=== PATIENT | female | born 1960 | race Caucasian/White ===

== ENCOUNTER → 2024-11-28 10:52 | Outpatient (BNVA) | payer OTHER, SELFPAY | PROVIDERS: Visit Provider Specialist | DX: G31.84 Mild cognitive impairment of uncertain or unknown etiology (principal); G25.71 Drug induced akathisia | CPT/HCPCS: 82542; 83520 ==

== ENCOUNTER 2024-12-13 12:41 | Outpatient (CLI) | payer OTHER, SELFPAY ==
--- NOTE | 2024-12-13 12:30 | MR_ITS ---
WS: [id number] MRI BRAIN WITHOUT CONTRAST HISTORY: G31.84 - Mild cognitive impairment of uncertain or unknow... COMPARISON: None available. TECHNIQUE: Diffusion imaging, multiplanar T1, T2 and FLAIR imaging obtained. No evidence for acute infarct or hemorrhage. Martin-white matter differentiation is normal. Mild RIGHT hippocampal atrophy. Mild cerebral and cerebellar atrophy. No prior infarct. No significant small vessel disease. Ventricles and extra-axial spaces are normal. Increased CSF at the RIGHT cerebellopontine angle and extending towards the internal auditory canal. Signal changes on all sequences appear to be related to CSF. This is asymmetric to the LEFT CP angle. Dural venous sinuses and lytton of Lozano demonstrate no abnormality on this unenhanced studies. Paranasal sinuses: Clear. Mastoid air cells: Normal. Calvarium and scalp: Intact. MR/MR head wo con* [id number] IMPRESSION: 1. No acute infarct or hemorrhage. 2. Very mild cerebral and cerebellar atrophy. No prior infarct. 3. Very mild RIGHT hippocampal atrophy. 4. Normal size ventricles. 5. Prominent soft tissue at the RIGHT cerebellopontine angle. Asymmetry follow s CSF on all sequences.
== END 2024-12-13 12:42 | disposition home or self-care (01) ==
LOC: RAD 12:44
PROVIDERS: PCP Family Medicine; Visit Provider Specialist
DX: G31.84 Mild cognitive impairment of uncertain or unknown etiology (principal); G25.71 Drug induced akathisia; G31.89 Other specified degenerative diseases of nervous system; R93.0 Abnormal findings on diagnostic imaging of skull and head, not elsewhere classified
CPT/HCPCS: 70551

== ENCOUNTER 2025-01-21 13:37 | Outpatient (CLI) | payer OTHER, SELFPAY ==
--- NOTE | 2025-01-21 13:45 | MR_ITS ---
WS: [id number] MRI BRAIN WITH AND WITHOUT CONTRAST HISTORY: G31.84 - Mild cognitive impairment of uncertain or unknow... COMPARISON: 12/13/2024 TECHNIQUE: Multiplanar imaging performed through the brain with MultiHance 10 ml's IV. No acute infarcts are seen. Martin-white matter differentiation is well preserved. Mild cerebral and cerebellar atrophy. Mild RIGHT hippocampal atrophy is similar to the prior study. No susceptibility artifacts or prior lacunar infarcts. Ventricles and extra-axial spaces are normal. Clivus and pituitary gland are normal. Visualized posterior fossa and brainstem are also normal. Postcontrast images are negative for masses or vascular malformations. No masses or signal abnormality at the cerebellopontine angles. Dural venous sinuses are normal. Paranasal sinuses: Well aerated with no significant disease. Mastoid air cells: Normal. Calvarium and scalp: Normal. MR/MR head wo/w con [id number] IMPRESSION: 1. No acute infarct or hemorrhage. 2. No enhancing masses. No abnormality at the cerebellopontine angles. 3. Mild cerebral and cerebellar atrophy. 4. Mild RIGHT hippocampal atrophy, unchanged.
[2025-01-21] MEDS: gadobenate dimeglumine 20 mL vial IV (15:49)
== END 2025-01-21 13:38 | disposition home or self-care (01) ==
LOC: RAD 13:39
PROVIDERS: PCP Family Medicine; Visit Provider Specialist
DX: G31.84 Mild cognitive impairment of uncertain or unknown etiology (principal); G31.89 Other specified degenerative diseases of nervous system
CPT/HCPCS: 70553